=== PATIENT | male | born 1975 ===

== ENCOUNTER 2016-08-15 14:39 | Emergency (ER) | payer SELFPAY ==
[2016-08-15 15:14] VITALS: BP 163/93
--- NOTE | 2016-08-15 16:09 | RAD ---
HISTORY: Right knee pain, trauma COMPARISONS: None VIEWS: 2, Frontal and lateral views of the right knee FINDINGS: BONE DENSITY: Normal. BONES: There is no displaced fracture. JOINTS: There is no arthropathy. ALIGNMENT: There is no dislocation. SOFT TISSUES: Unremarkable. OTHER FINDINGS: None. IMPRESSION: NO ACUTE OSSEOUS INJURY. IF SYMPTOMS PERSIST, RECOMMEND REPEAT IMAGING.
--- NOTE | 2016-08-15 16:09 | RAD ---
HISTORY: Right hand trauma COMPARISONS: None VIEWS: 2, Frontal and lateral views of the right forearm FINDINGS: BONE DENSITY: Normal. BONES: There is no displaced fracture. JOINTS: There is no arthropathy. ALIGNMENT: There is no dislocation. SOFT TISSUES: Unremarkable. OTHER FINDINGS: None. IMPRESSION: NO ACUTE OSSEOUS INJURY. IF SYMPTOMS PERSIST, RECOMMEND REPEAT IMAGING.
--- NOTE | 2016-08-15 16:20 | RAD ---
Indication: Right hand injury. 4 views of the right hand demonstrates no fracture. No other bone or joint abnormality is identified. IMPRESSION: No fracture of the right hand is noted.
--- NOTE | 2016-08-15 16:44 | UC ---
Minor Trauma HPI - HPI Summary HPI Summary: SLIPPED ON SMALL STONES THIS AFTERNOON, FEEL FORWARD ONTO KNEE AND OUTSTRETCHED HAND. NO OTHER INJURIES. PAIN IN RIGHT HAND/WRIST/FOREARM, AND IN RIGHT KNEE. PAIN AND SWELLING ON RIGHT WRIST. - History of Current Complaint Chief Complaint: UCUpperExtremity Stated Complaint: WRIST INJURY Time Seen by Provider: 08/15/16 15:20 Hx Obtained From: Patient Onset/Duration: Sudden Onset, Lasting Hours, Still Present Onset Of Pain: Post Accident Severity Initially: Moderate Severity Currently: Moderate Mechanism Of Injury: Fall From A Standing Position Aggravating Factor(s): Movement Alleviating Factor(s): Ice Associated Signs And Symptoms: Positive: Swelling Related History: Positive: Occupational Injury - Risk Factors Penetrating Injury Risk Factors: Negative - Allergies/Home Medications Allergies/Adverse Reactions: Allergies Allergy/AdvReac Type Severity Reaction Status Date / Time Penicillins Allergy Severe Anaphylatic Verified 08/15/16 15:15 Shock Bees Allergy Severe Anaphylatic Uncoded 08/15/16 15:15 Shock Home Medications: Home Medications Dulaglutide [Trulicity] 0.75 mg SC WEEKLY 08/15/16 [History Confirmed 08/15/16] Metformin HCl [Fortamet] 1,000 mg PO 08/15/16 [History] PMH/Surg Hx/FS Hx/Imm Hx Previously Healthy: Yes Endocrine History Of: Reports: Diabetes - Type 2 Denies: Thyroid Disease Cardiovascular History Of: Denies: Cardiac Disorders, Hypertension Respiratory History Of: Denies: COPD, Asthma GI/ History Of: Denies: Ulcer - Surgical History Surgical History: Yes Surgery Procedure, Year, and Place: Testicular abscess removal May 21, 2012. laminectomy jan 2016 L4 L5. Laminectomy jan 2015 L4 L5 - Family History Known Family History: Positive: None - Social History Occupation: Employed Full-time Lives: With Family Alcohol Use: Rare Substance Use Type: None Smoking Status (MU): Former Smoker Type: Cigarettes Length of Time of Smoking/Using Tobacco: 6 years When Did the Patient Quit Smoking/Using Tobacco: 2008 - Immunization History Most Recent Influenza Vaccination: denies Most Recent Tetanus Shot: 2014 Review of Systems Constitutional: Negative Skin: Negative Eyes: Negative ENT: Negative Respiratory: Negative Cardiovascular: Negative Gastrointestinal: Negative Genitourinary: Negative Motor: Negative Musculoskeletal: Arthralgia, Decreased ROM - RIGHT WRIST, Edema - RIGHT WRIST, Myalgia - RIGHT WRIST Neurological: Negative Psychological: Negative All Other Systems Reviewed And Are Negative: Yes Physical Exam Triage Information Reviewed: Yes Appearance: Well-Appearing, No Pain Distress, Well-Nourished Vital Signs: Initial Vital Signs Temp 98.8 F 08/15/16 15:06 Pulse 89 08/15/16 15:06 Resp 16 08/15/16 15:06 BP 163/93 08/15/16 15:06 Pulse Ox 100 08/15/16 15:06 Vital Signs Reviewed: Yes Eye Exam: Normal ENT Exam: Normal ENT: Positive: Normal ENT inspection, Hearing grossly normal, Pharynx normal, TMs normal Dental Exam: Normal Neck exam: Normal Neck: Positive: Supple, Nontender Respiratory Exam: Normal Respiratory: Positive: Chest non-tender, Lungs clear, Normal breath sounds, No respiratory distress Cardiovascular Exam: Normal Cardiovascular: Positive: RRR, No Murmur Abdominal Exam: Normal Abdomen Description: Positive: Nontender, No Organomegaly Musculoskeletal: Positive: Strength Limited @ - RIGHT WRIST, ROM Limited @ - RIGHT WRIST, Edema @ - RIGHT WRIST Neurological Exam: Normal Psychological Exam: Normal Skin Exam: Normal Minor Trauma Course/Dx - Differential Dx/Diagnosis Differential Diagnosis/HQI/PQRI: Sprain, Strain Provider Diagnoses: RIGHT HAND/WRIST SPRAIN. RIGHT KNEE CONTUSION Discharge - Discharge Plan Condition: Stable Disposition: HOME Patient Education Materials: Contusion in Adults (ED), Knee Pain (ED), Wrist Sprain (ED) Forms: *Work Release Referrals: [facility] [Outside] [facility] [Outside] Anshul Worthy MD [Medical Doctor] - No Primary Care Phys,NOPCP [Primary Care Provider] -
== END 2016-08-15 16:39 | disposition home or self-care (01) ==
LOC: UCEAST 14:39
DX: S63.501A Unspecified sprain of right wrist, initial encounter (principal); S80.01XA Contusion of right knee, initial encounter; E11.9 Type 2 diabetes mellitus without complications; Z88.0 Allergy status to penicillin; Z91.030 Bee allergy status; Z87.891 Personal history of nicotine dependence
CPT/HCPCS: 99212; G0463

== ENCOUNTER 2019-07-23 07:06 | Emergency (ER) | payer BC ==
[2019-07-23 07:22] VITALS: BP 171/99
--- NOTE | 2019-07-23 07:26 | UC ---
FLU HPI - HPI Summary HPI Summary: 43 y/o male with flu like illness. Sore throat, R ear pain, sinus congestion, intermittent fever x1 week. Pt has been taking Cephalexin 500mg BID since Friday that was rx'd to him in April when his daughter was dx'd with strep throat in the event he got sick. Pt states no improvement.Exertion worsens Sx. - History of Current Complaint Chief Complaint: UCGeneralIllness Stated Complaint: FEVER,THROAT,EARS Time Seen by Provider: 07/23/19 07:20 Hx Obtained From: Patient Pain Intensity: 0 - Allergy/Home Medications Allergies/Adverse Reactions: Allergies Allergy/AdvReac Type Severity Reaction Status Date / Time Penicillins Allergy Anaphylatic Verified 07/23/19 07:16 Shock Bees Allergy Severe Anaphylatic Uncoded 08/15/16 15:15 Shock Home Medications: Home Medications Benzonatate CAP* [Tessalon 100 MG CAP*] 100 mg PO TID PRN #20 cap 07/23/19 [Rx] Cephalexin CAP* [Keflex 500 CAP*] 500 mg PO BID 07/23/19 [History Confirmed ] Dm/Acetaminophen/Doxylamine [Nighttime Cold and Flu Liquid] 1 dose PO ONCE 07/23 [History Confirmed 07/23/19] Magic Mouth Was-SHAJI/MAAL/LIDO* 5 ml SWISH SPIT QID #120 ml 07/23/19 [Rx] PMH/Surg Hx/FS Hx/Imm Hx Previously Healthy: Yes - Surgical History Surgical History: Yes Surgery Procedure, Year, and Place: Testicular abscess removal May 21, 2012. laminectomy jan 2016 L4 L5. Laminectomy jan 2015 L4 L5 - Family History Known Family History: Positive: None - Social History Alcohol Use: Rare Substance Use Type: None Smoking Status (MU): Former Smoker Type: Cigarettes Length of Time of Smoking/Using Tobacco: 6 years When Did the Patient Quit Smoking/Using Tobacco: 2008 Cessation Counseling: Patient Advised to Stop - Immunization History Most Recent Influenza Vaccination: denies Most Recent Tetanus Shot: 2014 Review of Systems All Other Systems Reviewed And Are Negative: Yes Constitutional: Positive: Chills, Fatigue ENT: Positive: Sore Throat, Ear Ache, Nasal Discharge, Sinus Congestion, Sinus Pain/Tenderness Respiratory: Positive: Cough Is Patient Immunocompromised?: No Physical Exam Triage Information Reviewed: Yes Appearance: Well-Appearing, No Pain Distress, Well-Nourished Vital Signs: Initial Vital Signs Temp 99.1 F 07/23/19 07:17 Pulse 92 07/23/19 07:17 Resp 18 07/23/19 07:17 BP 171/99 07/23/19 07:17 Pulse Ox 98 07/23/19 07:17 Vital Signs Reviewed: Yes Eye Exam: Normal ENT Exam: Normal ENT: Positive: Pharyngeal erythema, Nasal congestion, TM dull Dental Exam: Normal Neck exam: Normal Neck: Positive: 1 Respiratory Exam: Normal Cardiovascular Exam: Normal Musculoskeletal Exam: Normal Neurological Exam: Normal Psychological Exam: Normal Skin Exam: Normal Flu Course/Dx - Course Course Of Treatment: ELEVATED BP ADVISED F/U WITH PCP. neg flu. likely viral illness. f/u pcp - Differential Dx/Diagnosis Differential Diagnosis/HQI/PQRI: Broncholiolitis, Influenza, Pneumonia, Upper Respiratory Infection Provider Diagnosis: Elevated blood pressure reading, Viral illness Discharge ED - Sign-Out/Discharge Documenting (check all that apply): Patient Departure All imaging exams completed and their final reports reviewed: No Studies - Discharge Plan Condition: Critical Disposition: HOME Prescriptions: Benzonatate CAP* [Tessalon 100 MG CAP*] 100 mg PO TID PRN #20 cap PRN Reason: Cough Magic Mouth Was-SHAJI/MAAL/LIDO* 5 ml SWISH SPIT QID #120 ml Patient Education Materials: Viral Syndrome (ED) Forms: *Work Release Referrals: Scott Chauhan MD [Primary Care Provider] - 3 Days - Billing Disposition and Condition Condition: CRITICAL Disposition: Home
[2019-07-23 07:39] LABS: Influenza A Molecular Negative (Negative); Influenza B Molecular Negative (Negative)
== END 2019-07-23 08:02 | disposition home or self-care (01) ==
LOC: UCCORT 07:06
DX: B34.9 Viral infection, unspecified (principal); R03.0 Elevated blood-pressure reading, without diagnosis of hypertension; J02.9 Acute pharyngitis, unspecified; R05 Cough; R09.89 Other specified symptoms and signs involving the circulatory and respiratory systems; R53.83 Other fatigue; H92.01 Otalgia, right ear; Z87.891 Personal history of nicotine dependence; Z88.0 Allergy status to penicillin; Z91.030 Bee allergy status
CPT/HCPCS: 99212; G0463